=== PATIENT | female | born 1950 | race Caucasian/White ===

== ENCOUNTER 2021-06-25 01:04 | Observation (INO) | payer MEDICARE, OTHER ==
[2021-06-25] MEDS ORDERED: Ondansetron 4 MG/2 ML SDV ONE (01:42)
[2021-06-25] MEDS ORDERED: Dexamethasone 4 MG/ML SDV IVPUSH ONE (02:04)
[2021-06-25] MEDS ORDERED: Ondansetron 4 MG/2 ML SDV IV PRN (02:19)
[2021-06-25] MEDS: levETIRAcetam 500 MG in Sodium Chloride 0.9% 100 ML IV SCH ×2 (02:53→13:57)
[2021-06-25] MEDS: Dexamethasone 4 MG/ML SDV IVPUSH SCH ×3 (02:55→13:53)
[2021-06-25] MEDS ORDERED: Gadoteridol 279.3 MG/ML 20 ML SDV IV ONE (08:37)
[2021-06-25] MEDS ORDERED: Metoprolol Succinate 100 MG Tab.ER PO SCH (09:00)
[2021-06-25] MEDS ORDERED: amLODIPine 5 MG Tab PO SCH (09:00)
[2021-06-25] MEDS ORDERED: Fenofibrate,Micronized 134 MG Cap PO SCH ×2 (09:00→21:00)
[2021-06-25] MEDS ORDERED: Non-Formulary Medication 1 Each (Insulin Lispro [Humalog] 100 UNIT/ML Vial) SQ SCH (09:00)
[2021-06-25] MEDS ORDERED: Folic Acid 1 MG Tab PO SCH (09:00)
[2021-06-25] MEDS ORDERED: Hydrochlorothiazide 25 MG Tab PO SCH (09:00)
[2021-06-25] MEDS ORDERED: Losartan 100 MG Tab PO SCH (09:00)
[2021-06-25] MEDS ORDERED: Simvastatin 40 MG Tab PO SCH ×2 (09:00→21:00)
[2021-06-25] MEDS ORDERED: Folic Acid 1 MG Tab *PTOM PO SCH (10:00)
[2021-06-25] MEDS ORDERED: cefTRIAXone 1 GM Vial IVPUSH SCH (10:19)
[2021-06-25] MEDS ORDERED: Acetaminophen 325 MG Tab PO PRN (10:25)
[2021-06-25] MEDS ORDERED: Promethazine 25 MG Tab PO PRN (10:25)
[2021-06-25] MEDS ORDERED: 50% Dextrose in Water 50 ML Syringe IVPUSH PRN (10:27)
[2021-06-25] MEDS ORDERED: Glucagon,Human Recombinant 1 MG Vial IM PRN (10:27)
[2021-06-25] MEDS ORDERED: Metoprolol Succinate 100 MG Tab.ER *PTOM PO SCH (10:30)
[2021-06-25] MEDS ORDERED: Levothyroxine 50 MCG Tab *PTOM PO SCH (10:30)
[2021-06-25] MEDS ORDERED: Losartan 100 MG Tab *PTOM PO SCH (10:30)
[2021-06-25] MEDS ORDERED: Hydrochlorothiazide 25 MG Tab *PTOM PO SCH (10:30)
[2021-06-25] MEDS ORDERED: amLODIPine 5 MG Tab *PTOM PO SCH (10:30)
[2021-06-25] MEDS ORDERED: metFORMIN 1,000 MG Tab *PTOM PO SCH (10:30)
[2021-06-25] MEDS: Sodium Chloride 0.9% 10 ML Syringe FLUSH PRN ×2 (11:16→13:53)
[2021-06-25] MEDS ORDERED: INSULIN LISPRO 100 UNIT/ML SUBCUT SCH (12:00)
[2021-06-25] MEDS ORDERED: metFORMIN 1,000 MG Tab PO SCH (18:00)
[2021-06-25] MEDS ORDERED: INSULIN GLARGINE HUM REC ANLOG 300 UNIT SQ SCH (21:00)
[2021-06-25] MEDS ORDERED: Latanoprost 0.005% Ophth Soln 2.5 ML Bottle EYEBOTH SCH (21:00)
[2021-06-25] MEDS ORDERED: Simvastatin 40 MG Tab *PTOM PO SCH (21:00)
[2021-06-25] MEDS ORDERED: FENOFIBRATE MICRONIZED 134 MG PO SCH (21:00)
[2021-06-25] MEDS ORDERED: Cranberry 500 MG Cap *PTOM PO SCH (21:00)
[2021-06-26] MEDS ORDERED: Levothyroxine 50 MCG Tab PO SCH (07:30)
== END 2021-06-25 16:25 ==
LOC: FB.ED 01:04 → FB.MS 10:01
PROVIDERS: ADMIT Family Medicine; ATTEND Family Medicine
DX: R90.0 Intracranial space-occupying lesion found on diagnostic imaging of central nervous system (principal); R11.10 Vomiting, unspecified; R19.7 Diarrhea, unspecified; G93.6 Cerebral edema; E78.00 Pure hypercholesterolemia, unspecified; E03.9 Hypothyroidism, unspecified; I10 Essential (primary) hypertension; E11.9 Type 2 diabetes mellitus without complications; R82.90 Unspecified abnormal findings in urine; Z20.822 Contact with and (suspected) exposure to COVID-19; Z88.2 Allergy status to sulfonamides; Z79.899 Other long term (current) drug therapy; Z79.890 Hormone replacement therapy; Z79.84 Long term (current) use of oral hypoglycemic drugs; Z79.4 Long term (current) use of insulin
CPT/HCPCS: 36415; 70450; 70553; 80053; 81001; 82947; 84484; 85025; 87086; 93005; 96365; 96375; 99285; A9270; A9579; J0696; J1100; J1815; J1953; J2405; U0002; 93010; 96376; 99223; G0378

== ENCOUNTER 2023-06-06 04:02 | Emergency (ER) | payer MEDICARE, OTHER ==
[2023-06-06] MEDS ORDERED: traMADol 50 MG Tab PO ONE (04:12)
[2023-06-06] MEDS ORDERED: Cyclobenzaprine 10 MG Tab PO ONE (04:14)
[2023-06-06] MEDS ORDERED: Sodium Chloride 0.9% 10 ML Syringe FLUSH PRN (05:51)
[2023-06-06] MEDS ORDERED: Morphine 4 MG/ML VIAL IVPUSH ONE (05:53)
[2023-06-06 06:05] LABS: HEMATOCRIT 38.5 % (34.2-48.2); HEMOGLOBIN 12.6 g/dL (11.4-15.5); MEAN CORPUSCULAR HGB CONC 32.6 g/dL (31.9-34.8); MEAN PLATELET VOLUME 7.1 fL (7.1-12.4); PLATELET COUNT,PLT 578 x10(3)uL (151-488); RED BLOOD CELL COUNT 4.48 x10(6)uL (3.60-5.20); RED CELL DISTRIBUTION WIDTH 16.6 % (12.3-16.5); WHITE BLOOD CELL COUNT,WBC 15.2 x10-3/uL (3.0-10.3)
[2023-06-06 06:13] LABS: BLOOD UREA NITROGEN,BUN 23 mg/dL (7-18); BUN/CREATININE RATIO 32.9 (9-20); CALCIUM 9.6 mg/dL (8.6-10.2); CARBON DIOXIDE,CO2 26 mmol/L (21-32); CHLORIDE,CL 100 mmol/L (100-110); CREATININE 0.7 mg/dL (0.55-1.02); EST CRCL DRUG DOSING (CG) 56.61 mL/min; ESTIMATED GFR 91 mL/min (>60); GLUCOSE RANDOM 188 mg/dL (80-116); POTASSIUM,K 4.3 mmol/L (3.5-5.3); SODIUM,NA 133 mmol/L (135-145)
[2023-06-06 06:17] LABS: BAND PERCENT MAN 2 % (0-6); EOSINOPHILS PERCENT MAN 1 % (0-5); LYMPHOCYTES PERCENT MAN 10 % (13-37); MONOCYTES PERCENT MAN 5 % (4-12); SEG NEUTROPHILS PERCENT MAN 82 % (46-82)
[2023-06-06 06:25] LABS: ALANINE AMINOTRANSFERASE,ALT 32 U/L (12-36); ALBUMIN 3.7 g/dL (3.2-4.6); ALKALINE PHOSPHATASE 57 IU/L (56-112); ASPARTATE AMNIOTRANSFERASE,AST 22 IU/L (5-25); BILIRUBIN TOTAL 0.4 mg/dL (0.1-1.3); PROTEIN TOTAL,TP 7.4 g/dL (6.0-8.0)
[2023-06-06] MEDS ORDERED: Ketorolac 30 MG/ML SDV IVPUSH ONE (07:55)
== END 2023-06-06 08:37 | disposition home or self-care (01) ==
LOC: FB.ED 04:02
DX: M54.81 Occipital neuralgia (principal); M48.02 Spinal stenosis, cervical region; I10 Essential (primary) hypertension; E11.9 Type 2 diabetes mellitus without complications; E03.9 Hypothyroidism, unspecified; E78.00 Pure hypercholesterolemia, unspecified; M19.90 Unspecified osteoarthritis, unspecified site; Z88.2 Allergy status to sulfonamides; Z79.82 Long term (current) use of aspirin; Z79.4 Long term (current) use of insulin; Z79.84 Long term (current) use of oral hypoglycemic drugs; Z79.899 Other long term (current) drug therapy; Z90.710 Acquired absence of both cervix and uterus
CPT/HCPCS: 36415; 70450; 72125; 80053; 85025; 96374; 96375; 99284-25; A9270-GY; J1885; J2270